=== PATIENT | male | born 2000 | race Hispanic/Latino ===

== ENCOUNTER 2022-04-20 10:06 | Emergency (ER) | payer SELFPAY ==
[2022-04-20 10:08] VITALS: BP 103/82; PULSE 83; RESP 18; TEMP 35.8; O2SAT 99; BMI 20.3
--- NOTE | 2022-04-20 10:19 | EKG12_ITS ---
Test Reason : Blood Pressure : / mmHG Vent. Rate : 087 BPM Atrial Rate : 087 BPM P-R Int : 112 ms QRS Dur : 152 ms QT Int : 408 ms P-R-T Axes : 061 -33 047 degrees QTc Int : 490 ms Normal sinus rhythm Vvdjg-Aaeaiswfg-Ajdwi Abnormal ECG Confirmed by DUNIA HOBSON, JONEL ([id number]), photographic editor IVAN GR ([id number]) on 04/22/2022 10:28:42 AM Referred By: DEBI Confirmed By:JONEL DUQEU MD
--- NOTE | 2022-04-20 10:20 | EX.ED.DYSGE1 ---
HPI History of Present Illness Chief Complaint: Seizure Detail of Chief Complaint: Sickle episode x2 Informant: patient and other (Patient non-Luxembourgish speaking and deburrer machine service was used. Total time for history 10 minutes) Limited: language barrier Onset/Context/Timing Onset: Hours Context: Sudden Onset Timing: Intermittent (Documented HPI narrative) Quality: Patient collapsed and felt he was better attempted to get up and collapsed. Location: Work Current Severity: Gone Maximum Severity: Unable to determine Worsened by: Nothing PFSH PFSH Medical History no medical history Home Medications NK 04/20/22 [History Last Taken Unknown] Allergy/AdvReac Type Severity Reaction Status Date / Time No Known Allergies Allergy Verified 04/20/22 10:18 Surgical History no surgical history Social History Smoking Status: Never smoker EXAM Physical Exam Const Vital Signs: 04/20/22 10:08 04/20/22 11:42 04/20/22 11:50 Temperature 96.5 F L Temperature Source Temporal Pulse Rate 83 89 Pulse Rate [Lying] 83 Pulse Rate [Sitting (for 1 minute prior to obtaining)] 100 Pulse Rate [Standing (for 1 minute prior to obtaining)] 98 Respiratory Rate 18 21 H Blood Pressure 103/82 H 105/79 Blood Pressure [Lying] 117/81 H Blood Pressure [Sitting (for 1 minute prior to obtaining)] 121/80 H Blood Pressure [Standing (for 1 minute prior to obtaining)] 119/81 H Blood Pressure Mean 89 87 Blood Pressure Mean [Lying] 93 Blood Pressure Mean [Sitting (for 1 minute prior to obtaining)] 93 Blood Pressure Mean [Standing (for 1 minute prior to obtaining)] 93 Pulse Ox 99 Oxygen Delivery Method Room Air 04/20/22 12:08 Temperature Temperature Source Pulse Rate 86 Pulse Rate [Lying] Pulse Rate [Sitting (for 1 minute prior to obtaining)] Pulse Rate [Standing (for 1 minute prior to obtaining)] Respiratory Rate 14 Blood Pressure 118/89 H Blood Pressure [Lying] Blood Pressure [Sitting (for 1 minute prior to obtaining)] Blood Pressure [Standing (for 1 minute prior to obtaining)] Blood Pressure Mean 98 Blood Pressure Mean [Lying] Blood Pressure Mean [Sitting (for 1 minute prior to obtaining)] Blood Pressure Mean [Standing (for 1 minute prior to obtaining)] Pulse Ox 100 Oxygen Delivery Method Room Air MDM MDM MDM Narrative Medical decision making narrative: Patient presents with syncopal sewed x2. He was not postictal after abnormal movement noted by coworker. EKG was obtained to determine if there is any evidence of dysrhythmia especially since his previous hospital EKG was not normal. Blood work was obtained as well to assess electrolytes, for anemia and troponin was obtained. Because he reported abnormal chest x-ray when he was admitted to [facility] 5 years ago will obtain chest x-ray. He states he was told there is a lesions. There are no prior records. [employer] was used. I was contacted by Dr. Edward Dia's nurse practitioner Ava. She will relay information to Dr. Naranjo. He apparently has been in the [employer] placing a pacemaker. Dr. Naranjo recommended 24-hour Holter. He has an opening tomorrow and will have secretary bookkeeper call him while he is in the emergency room to confirm tomorrow's appointment. At this point patient will not receive any medications. Lab Data Attestation: I reviewed the patient's lab results. Lab results narrative: CBC is unremarkable. Comprehensive metabolic panel reveals slight elevation of glucose to 131. CO2 and anion gap normal. Lactate elevated 3.3. Labs: Laboratory Results - last 24 hr 04/20/22 04/20/22 04/20/22 10:30 10:30 10:30 WBC 6.9 RBC 4.77 Hgb 15.1 Hct 45.3 MCV 95.0 H MCH 31.7 MCHC 33.3 RDW Std Deviation 46.1 H RDW Coeff of Pierce 13.2 Plt Count 191 MPV 9.0 Immature Gran % (Auto) 0.300 Neut % (Auto) 56.0 Lymph % (Auto) 33.8 Dillon % (Auto) 5.1 Eos % (Auto) 3.8 Baso % (Auto) 1.0 Absolute Neuts (auto) 3.9 Absolute Lymphs (auto) 2.32 Nucleated RBC % 0 Sodium 141 Potassium 3.3 L Chloride 106 Carbon Dioxide 25.0 Anion Gap 10 BUN 12 Creatinine 1.15 Estim Creat Clear Calc 81.45 Est GFR (MDRD) Af Amer 102 Est GFR (MDRD) Non-Af 84 BUN/Creatinine Ratio 10.4 Glucose 131 H Lactic Acid 3.3 H* Calcium 9.0 Total Bilirubin 0.50 AST 30 ALT 32 Alkaline Phosphatase 139 H Troponin I High Sens 8 Total Protein 7.6 Albumin 4.1 Globulin 3.5 Albumin/Globulin Ratio 1.2 Radiography Chest X-Ray - ED: 2 View and Read by ED Physician (2 view chest x-ray is normal. Cardiac silhouette and size normal. Perihilar region normal. Lung parenchyma normal. Osseous structures are normal. This independently reviewed and interpreted by me at 1058.) Diagnostic Testing: Clinical Impression(s) from Imaging Studies Chest X-Ray 04/20/22 10:54 IMPRESSION: No acute abnormality is seen. Electronically Signed: Alvarado Rodrigues MD at 11:04 EST , EKG Initial EKG: Attestation: I personally reviewed and interpreted this EKG as follows: Interpretation: Sinus Rhythm (Ventricular rate is 87. CA interval is 112 ms. QS duration 102 ms. QT duration 408 ms axis is normal. 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 Prehospital EKG was interpreted by me as a normal sinus rhythm with what appears to be a right bundle branch block. 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 Edward Dia is on-call. We will discuss case and treatment plan. Discharge Plan Triage Chief Complaint: Seizure ED Provider: Frank Curtis Dx/Rx/DC Orders Clinical Impression: Syncope and collapse, Tcdsn-[id number]-Txvte syndrome, Acidosis, lactic Instructions: ED About Arrhythmias, ED Fainting, Uncertain Cause Prescriptions: No Action NK Primary Care Provider: Care Physician,No Primary Referrals: Edward Dia MD [Med Staff - Active Staff] - 04/21/22 10:00 am NOT,DEFINED [Non-Staff] -
[2022-04-20 10:39] LABS: Absolute Lymphocyte Count 2.32 X10^3/uL (0.83-4.51); Absolute Neutrophil Count 3.9 X10^3/uL (2.0-7.7); Basophil# 0.07 X10^3/uL; Eosinophil# 0.26 X10^3/uL; Eosinophils% 3.8 % (0-5); Hematocrit 45.3 % (40-54); Hemoglobin 15.1 g/dL (13.0-16.5); Lymphocyte # 2.32 X10^3/ul (0.83-4.51); Lymphocyte % 33.8 % (19-41); Mean Corp Hgb Conc 33.3 g/dL (32-36); Mean Corpuscular Hgb 31.7 pg (27.0-32.0); Monocyte# 0.35 X10^3/uL; Monocyte% 5.1 % (0-10); NRBC Flagged by Analyzer 0 % (0-5); Neutrophil # 3.85 X10^3/uL (2.7-7.7); Platelet Count 191 K/mm3 (150-450); RBC Distribution Width CV 13.2 % (11.6-14.6); RBC Distribution Width SD 46.1 fl (35.1-43.9); Red Blood Count 4.77 M/mm3 (4.6-6.2); White Blood Count 6.9 K/mm3 (4.4-11.0)
--- NOTE | 2022-04-20 10:54 | RAD_ITS ---
STUDY: X-RAY CHEST REASON FOR EXAM: Male, 21 years old. Reported lesions during immigration process . Syncopal episodes. TECHNIQUE: PA and lateral views of the chest. COMPARISON: None. FINDINGS: EKG electrodes are seen. The lungs are clear and expanded. Scattered calcified granulomas. There is no demonstrated pleural abnormality. Normal size heart. Normal mediastinum and savana. Normal visualized pulmonary arteries. Normal visualized aortic arch and descending thoracic aorta. Normal visualized thoracic spine. Normal visualized ribs, clavicles, and shoulders. There is no demonstrated abnormality of the visualized soft tissue structures of the upper abdomen. RAD/Chest PA and Lateral IMPRESSION: No acute abnormality is seen. Electronically Signed: Alvarado Rodrigues MD at 11:04 [facility] ,
[2022-04-20 10:59] LABS: ALB/GLOB Ratio 1.2 RATIO (0.9-2.4); AST(SGOT) 30 U/L (15-37); Alanine Aminotransfer ALT/SGPT 32 U/L (16-61); Albumin, Serum 4.1 g/dL (3.2-5.0); Alkaline Phosphatase 139 U/L (45-117); Anion Gap 10 (5-15); BUN 12 mg/dL (7-18); BUN/Creat Ratio 10.4 RATIO (10-20); Chloride 106 mmol/L (98-107); Creatinine, Serum 1.15 mg/dL (0.70-1.30); EST Glomerular Filtration Rate 84 mL/min (>60); Est Glom Filt Rate - Afr Amer 102 mL/min (>60); Estimated Creatinine Clearance 81.45 ml/min; Globulin 3.5 g/dL (2.2-4.2); Glucose 131 mg/dL (74-106); Potassium 3.3 mmol/L (3.5-5.1); Protein, Total 7.6 g/dL (6.4-8.2); Sodium Level 141 mmol/L (136-145); Troponin-I HS 8 pg/mL (3.0-78.0)
--- NOTE | 2022-04-20 11:14 | CM.ED ---
SW Note Referral Reason: No PCP Referral Source: Case Find SW met with patient and patient's guest and introduced herself and role as [facility] Revenue Cycle Consultant. SW requested permission to speak to patient with guest present, patient shook head yes. SW explained she was meeting with patient due to him having no PCP and no insurance. Patient's friend explained patient does not speak [place] and was in town for work. Declined Medicaid application and local PCP list. SW provided [facility], patient accepted that information. Cathy SWANN, KENDALL
[2022-04-20 11:15] LABS: Lactic Acid 3.3 mmol/L (0.4-1.9)
[2022-04-20 11:42] VITALS: BP 105/79; PULSE 89; RESP 21
[2022-04-20 11:50] VITALS: BP 117/81; BP 119/81; BP 121/80; PULSE 100; PULSE 83; PULSE 98
[2022-04-20 12:08] VITALS: BP 118/89; PULSE 86; RESP 14; O2SAT 100
[2022-04-20 13:43] VITALS: BP 115/77; PULSE 87
[2022-04-20 14:35] LABS: Reflex Lactate? Y
== END 2022-04-20 13:44 | disposition home or self-care (01) ==
PROVIDERS: Emergency Provider Emergency Medicine; Visit Provider Emergency Medicine
DX: I45.6 Pre-excitation syndrome (principal); E87.20 Acidosis, unspecified; R55 Syncope and collapse
CPT/HCPCS: 71046; 80053; 83605; 84484; 85025; 93005; 99285; A4216

== ENCOUNTER → 2022-04-20 | Outpatient (CLI) | payer SELFPAY | END | disposition home or self-care (01) | LOC: PSN 13:39 | PROVIDERS: Visit Provider Internal Medicine Cardiovascular Disease | DX: R56.9 Unspecified convulsions (principal) | CPT/HCPCS: 93225; 93226 ==